=== PATIENT | male | born 1935 | race Caucasian/White ===

== ENCOUNTER 2021-03-02 04:01 | Inpatient (IN) | payer OTHER ==
[~2021-03-02] VITALS: Ht 101.6 cm; Wt 46.6 kg
--- NOTE | ~2021-03-02 | EMS ---
[place] [address] EMS Patient Care Report Name: KATHERINE ZUNIGA Room #: PRE M.R.#: [id number] Admission: Attend Phys: Discharge: Date of : 35 Report #: [id number] THIS REPORT FOR: //name// Report Transmitted: 03/02/2021 03:28 EMS Care Summary [place], [place]/[facility] Incident [id number] @ 03/02/2021 03:34 Incident Location [facility] [address] Patient KATHERINE ZUNIGA Male, 85 Years 1935 Patient Address [address] [place] [address] Patient History Diabetes,Amputee,Back Pain (Chronic), Chief Complaint HYPOGLYCEMIC Disposition Transported No Lights/[place] Dispatch Reason Breathing Problem Transported To [facility] Narrative RESPONDED TO BREATHING PROBLEMS AT SENIOR CARE. UPON ARRIVAL PT FOUND IN BED WITH BREATHING TREATMENT BEING ADMINISTERED BY SENIOR CARE STAFF. [place] STAFF REPORT THEY'VE HAD ISSUES WITH HIS BLOOD SUGAR BEING REUGLATED LATELY ALONG WITH HIM BECOMING MORE ALTERED THROUGHOUT THE NIGHT. PT NORMALLY ON OXYGEN PER [facility] STAFF. PT TEAM LIFTED TO COT AND SEATBELTS APPLIED. PT VITALS AND IV OBTAINED. PT GIVEN 100ML OF D10 AFTER EMS CHECKED HIS GLUCOSE AT 33. PT CONDITION IMPROVED SLIGHTLY UPON ARRIVAL AT HOSPITAL. PT TEAM LIFTED TO BED AND [address] [address] EMS Patient Care Report Name: KATHERINE ZUNIGA Room #: PRE M.R.#: [id number] Admission: Attend Phys: Discharge: Date of : 35 Report #: [id number] HANDRAILS UP. REPORT GIVEN TO NURSE. Initial Vitals @03:45P: 123,R: 14,BP: 101/66,Glucose: 33,SpO2: 93, @03:53P: 142,R: 16,BP: 100/66,Pain: 0/10,GCS: 13,Glucose: 135,CO: 5,SpO2: 93,Revised Trauma: 12, Assessments @03:43MENTAL:Confused,Person Oriented,SKIN:Pale,HEENT:Head/Face: No Abnormalities,LUNG SOUNDS:General: No Abnormalities,ABDOMEN:General: No Abnormalities,PELVIS//GI:Incontinence,EXTREMITIES:Left Arm: Weakness,Right Arm: Weakness,Right Leg: Weakness,Left Leg: Weakness,PULSE:Radial: 2+ Normal,NEURO:Other,@03:55MENTAL:Confused,Person Oriented,Event Oriented,SKIN:Pale,HEENT:LUNG SOUNDS:General: No Abnormalities,ABDOMEN:General: No Abnormalities,PELVIS//GI:Incontinence,EXTREMITIES:Right Arm: Weakness,Right Leg: Weakness,Left Arm: Weakness,Left Leg: Weakness,PULSE:Radial: 2+ Normal,NEURO:Slurred Speech, Impression Diabetic Hypoglycemia Procedures @03:50 IV Therapy - Saline Lock 5cc (20 ga) Site: Antecubital-Right Response: UnchangedSucceeded @03:43 ALS Assessment Response: UnchangedSucceeded @03:52 Dextrose 10% - 100 Milliliters (ml) - Intravenous (IV) Response: Improved @03:45 Oxygen FlowRate: 5 Device: Nasal Cannula (NC) Response: UnchangedSucceeded @PTAAlbuterol - 2.5 Milligrams (mg) - Nebulized Timeline [employer]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,Albuterol - 2.5 Milligrams (mg) - Nebulized, 03:32,Call Received 03:32,Dispatch Notified 03:34,Dispatched 03:36,En Route 03:41,On Scene 03:43,At Patient 03:43,ALS Assessment,Response: UnchangedSucceeded, 03:45,Oxygen FlowRate: 5 Device: Nasal Cannula (NC) Response: UnchangedSucceeded, 03:45,BP: 101/66 M,PULSE: 123,RR: 14 R,SPO2: 93 Ox,ETCO2: ,B,PAIN: ,GCS: , 03:50,IV Therapy - Saline Lock 5cc 20 ga Site: Antecubital-Right,Response: UnchangedSucceeded, 03:52,Dextrose 10% - 100 Milliliters (ml) - Intravenous (IV),Response: Improved [facility] [address] [place] [address] EMS Patient Care Report Name: KATHERINE ZUNIGA Room #: PRE M.R.#: [id number] Admission: Attend Phys: Discharge: Date of : 35 Report #: [id number] 03:53,BP: 100/66 M,PULSE: 142,RR: 16 R,SPO2: 93 Ox,ETCO2: ,B,PAIN: 0,GCS: 13, 03:55,Depart Scene 03:57,At Destination 04:10,Call Closed Disclaimer v1.1 Copyright 2020 [employer] This EMS Care Summary contains data elements from the applicable legal record (which may be displayed differently). It is designed to provide pertinent information for the following purposes: continuity of care, clinical quality, and state data reporting. The complete legal record is available to ED staff and administrators of the receiving hospital in [employer]'s Patient Tracker. All data is provided "as is."
[2021-03-02 04:05] VITALS: BP 80/50
[2021-03-02] MEDS ORDERED: SSD CREAM 1% 5050 GM TOP (04:25)
[2021-03-02] MEDS ORDERED: ASCORBIC ACID500 MG PO (04:26)
[2021-03-02] MEDS ORDERED: ASA81BEC PO (04:26)
[2021-03-02] MEDS ORDERED: FLEXERIL PO (04:27)
[2021-03-02] MEDS ORDERED: LOVENOX30 MG/0.3 SUBQ (04:27)
[2021-03-02] MEDS ORDERED: HEMORRHOIDAL HC25 MG RECTAL (04:29)
[2021-03-02] MEDS ORDERED: GLUCAGON EMERGEN1 MG IM (04:29)
[2021-03-02] MEDS ORDERED: LANTUS100 UNIT/M SUBQ (04:30)
[2021-03-02] MEDS ORDERED: IPRAT-ALBUT 0.5-3 ML INH ×2 (04:30→04:31)
[2021-03-02] MEDS ORDERED: SUPER THERAVIT1 EACH PO (04:32)
[2021-03-02] MEDS ORDERED: MIRTAZAPINE15 M2 PO (04:32)
[2021-03-02] MEDS ORDERED: OXYCODONE HCL20 M1 PO (04:33)
[2021-03-02] MEDS ORDERED: PROTONIX40 M2 PO (04:33)
[2021-03-02] MEDS ORDERED: REGLAN 10 MG TA10 MG PO (04:34)
[2021-03-02] MEDS ORDERED: RENAL-VITE TAB0.8 MG PO (04:34)
[2021-03-02 04:35] LABS: HEMOGLOBIN 11.6 gm/dL (14.0-18.0); MCH 30.6 pg (26.0-34.0); MCHC 32.3 g/dL (28.0-37.0); MCV 94.9 fL (80.0-100.0); PLATELET COUNT 665 thou/uL (150-400); RBC 3.79 mil/uL (4.50-6.00); RDW 14.8 % (10.5-14.5); WBC 20.2 thou/uL (4.0-11.0)
[2021-03-02] MEDS ORDERED: SENNA LAX8.6 MG PO (04:35)
[2021-03-02] MEDS ORDERED: FLOMAX0.4 MG PO (04:35)
[2021-03-02 04:36] LABS: CALCIUM 7.9 mg/dL (8.5-10.1); CREATININE 0.9 mg/dL (0.7-1.3); POTASSIUM 3.3 mmol/L (3.5-5.1)
[2021-03-02 04:52] LABS: ALBUMIN 1.8 g/dL (3.4-5.0); TOTAL BILIRUBIN 0.5 mg/dL (0.2-1.0); TOTAL PROTEIN 5.7 g/dL (6.4-8.2)
[2021-03-02 04:53] LABS: URINE BILIRUBIN NEGATIVE (Negative); URINE BLOOD NEGATIVE (Negative); URINE CLARITY CLEAR; URINE COLOR YELLOW; URINE GLUCOSE-RANDOM* NEGATIVE (Negative); URINE KETONES NEGATIVE (Negative); URINE LEUKOCYTES-REFLEX NEGATIVE (Negative); URINE NITRITE-REFLEX NEGATIVE (Negative); URINE PROTEIN (DIPSTICK) NEGATIVE (Negative); URINE UROBILINOGEN 0.2 E.U./dl (0.2-1.0)
[2021-03-02 05:08] LABS: ABSOLUTE NEUTROPHILS 17.6 thou/uL (1.4-8.2); METAMYELOCYTES 1 %
[2021-03-02 05:40] LABS: HCO3 23.6 mmol/L (22.0-26.0); PCO2 43.7 mmHg (35.0-45.0); PO2 62.9 mmHg (80.0-100.0); pH 7.351 (7.360-7.450)
--- NOTE | 2021-03-02 11:09 | NUR ---
A #5F TRIPLE LUMEN POWER PICC WAS PLACED AFTER A BEDSIDE TIMEOUT WAS COMPLETED. THE LEFT UPPER ARM BRACHIAL VEIN WAS WIDLEY PATENT. THE LINE WAS PLACED PER HOSPITAL POLICY AFTER A BEDSIDE TIMEOUT WAS COMPLETED. THE LINE WAS TRIMMED TO 42CM AND ADVANCED WITHOUT DIFFICULTY. THE LINE WAS SECURED AND RELEASED FOR USE
--- NOTE | 2021-03-02 12:46 | EKG ---
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: : 1935 Requested By: Ela Moscoso Order Number: [id number] MD: Jameson Lyon Measurements Intervals [place] Rate: 106 P: 44 HI: 172 QRS: 57 QRSD: 86 T: 19 QT: 349 QTc: 464 Interpretive Statements Sinus tachycardia Low voltage, extremity and precordial leads Abnormal R-wave progression, early transition No previous ECG available for comparison Electronically Signed On 03-02-2021 12:46:34 ACID POLYMERIZATION OPERATOR by Jameson Lyon [email or web address] <ELECTRONICALLY SIGNED> By: Jameson Lyon MD 03/02/21 1246 0432 1 Jameson Lyon MD /RANDY
--- NOTE | 2021-03-02 14:18 | NUR ---
contacted for requested consult re:sacral ulcer.He deferred consult and requested that we contact instead. Order changed in [facility] & called
[2021-03-02 16:16] LABS: SQUAMOUS 0-3 Few /LPF (0-3)
[2021-03-02 16:17] LABS: BACTERIA-REFLEX 1-9 Few /HPF (None Seen); CASTS None Seen /LPF (None Seen); CRYSTALS None Seen /LPF (None Seen); URINE RBC 1-2 Rare /HPF (NONE SEEN); URINE WBC-REFLEX 0-5 Rare /HPF (0-5)
--- NOTE | 2021-03-02 21:57 | NUR ---
INFORMED HOSPITALIST ABOUT PT BG. HEEL SCORER INSTRUCTED TO DC D5 FLUIDS AND CHECK SUGAR Q6 AND WILL DETERMINE FURTHER STEPS AFTER NEXT BG CHECK.
[2021-03-03] VITALS (15 sets, daily range): BP systolic 85–146; BP diastolic 35–97
--- NOTE | 2021-03-03 04:57 | HC ---
[facility] [address] [place] [address] CONSULTATION Name: KATHERINE ZUNIGA Room #: 170-7 ADM IN M.R.#: [id number] Admission: 03/02/21 Attend Phys: Deanne Rodriguez Discharge: Date of : 35 Report #: [id number] THIS REPORT FOR: cc: Narciso Rosales MD, Christopher B. MD Barry, Joseph W. MD ~ INFECTIOUS DISEASE CONSULTATION ATTENDING PHYSICIAN: Dr. Mitchell. REASON FOR EVALUATION: Suspected aspiration pneumonitis, longstanding sacral decubitus ulcer as well. HISTORY OF PRESENT ILLNESS: Chart reviewed. The patient examined. This is an 85-year-old gentleman with known history of diabetes mellitus and complicated by vasculopathy, has previous bilateral AKAs as well as spinal stenosis with chronic pain, sacral decubitus ulcer, who was noted to have worsening encephalopathy, at this facility was confirmed to have hypoglycemia with a blood sugar in the 50s. He was transferred for further evaluation. He did improve his blood culture, however, had desaturated now, is on 12 liters per nasal cannula. Evaluation noted chest x-ray with multiple left-sided rib fractures, left sided pneumothorax. He has been given some morphine, he is minimally responsive at this point, unable to give any details. He was empirically started on antibiotics with Zosyn, vancomycin. Additional evaluation, lactic acid 1.8. Coronavirus testing was negative. Influenza was negative. Urinalysis was unremarkable. ABG showed a pH of 7.351, pO2 of 62.9 on a 50% Ventimask. ALLERGIES: None known. CURRENT MEDICATIONS: Include enoxaparin, vancomycin, famotidine, Zosyn, ondansetron, morphine as needed, acetaminophen, sliding scale insulin. PAST MEDICAL HISTORY: As described above, diabetes mellitus, vasculopathy, bilateral AKA, spinal stenosis, chronic pain, anxiety, dementia, depression, reflux, gastroparesis, baseline requirement of supplemental oxygen. SOCIAL HISTORY: Nonsmoker, no ethanol, no illicit drug use. FAMILY HISTORY: Noncontributory. REVIEW OF SYSTEMS: Not obtainable. PHYSICAL EXAMINATION: GENERAL: He is chronically ill-appearing, undernourished. He is pale, mild to [facility] [address] [place] [address] CONSULTATION Name: KATHERINE ZUNIGA Room #: 170-7 ADM IN [facility]#: [id number] Admission: 03/02/21 Attend Phys: Deanne Rodriguez Discharge: Date of : 35 Report #: [id number] moderate distress. VITAL SIGNS: Temperature 98.1, pulse 75, respirations 18, blood pressure 112/58. SKIN: Warm, dry, no rashes. HEENT: Normocephalic. NECK: Supple. LUNGS: Diminished breath sounds. ____ discomfort with palpation of the left side of the ribcage. No rubs. HEART: Distant, appears to be regular. I do not appreciate a murmur. ABDOMEN: Scaphoid, somewhat firm, no apparent peritoneal signs. GENITOURINARY AND RECTAL: Deferred. LABORATORY DATA: Procalcitonin 6.48. TSH of 7.145. ABGs on 50% Ventimask, pH 7.351, pCO2 of 43.7, pO2 of 62.9. Chest x-ray as described above, multiple posterolateral left rib fractures, small left apical pneumo, left basilar atelectasis. CBC: White count of 20.2, H and H 11.6 and 36.0, platelets of 665. Urinalysis unremarkable. Electrolytes: Sodium 139, potassium 3.3, chloride of 105, bicarb is 32, anion gap of 2, BUN and creatinine 23 and 0.9, glucose 78. AST of 41, borderline elevated. ALT of 25. Albumin 1.8, total protein 5.7. Estimated GFR of 80. ASSESSMENT: Encephalopathy, likely multifactorial, has some baseline dementia, it has been complicated by respiratory failure, suspect aspiration. We will continue empiric therapy, Zosyn reasonable. We will do additional diagnostic testing. It is uncertain what his baseline is, but he is certainly at high risk for clinical deterioration and additional hospital-acquired complications. <ELECTRONICALLY SIGNED> By: Junior Gonzales MD 03/03/21 0457 [id number] 0842 Junior Gonzales MD /nt
[2021-03-03 05:21] LABS: CALCIUM 7.6 mg/dL (8.5-10.1); CREATININE 0.7 mg/dL (0.7-1.3); POTASSIUM 3.9 mmol/L (3.5-5.1)
[2021-03-03 05:24] LABS: ABSOLUTE NEUTROPHILS 18.7 thou/uL (1.4-8.2); BASOPHILS 0.4 % (0.0-2.0); EOSINOPHILS 0.3 % (0.0-3.0); HEMOGLOBIN 11.6 gm/dL (14.0-18.0); LYMPHOCYTES 6.5 % (24.0-44.0); MCHC 32.1 g/dL (28.0-37.0); MCV 96.6 fL (80.0-100.0); MONOCYTES 4.4 % (1.0-8.0); PLATELET COUNT 676 thou/uL (150-400); POLYS 88.4 % (36.0-66.0); RBC 3.73 mil/uL (4.50-6.00); RDW 15.2 % (10.5-14.5); WBC 21.1 thou/uL (4.0-11.0)
--- NOTE | 2021-03-03 08:19 | NUR ---
PER DR ROJAS TO CAN BE CHANGED TO MED/SURG OF HE CAN COME OFF THE LEVOPHED. HE CAN ALSO BE ON A REGULAR DIET.
--- NOTE | 2021-03-03 18:32 | NUR ---
PT ARRIVED TO UNIT AT 1630. PT WAS TRANSPORTED VIA BED. PT A/OX4. PT COOPERATIVE. PT ANSWERED ADMISSION QUESTIONS. PT WANTED TO KNOW WHERE HIS BELONGINGS WERE. PT ONLY CAME UP WITH A WHITE LONG SLEEVE SHIRT. RN CALLED ED AND THEY SAID THEY WOULD LOOK AND GET BACK TO RN IN ICU
[2021-03-04] VITALS (79 sets, daily range): BP systolic 84–143; BP diastolic 35–62
[2021-03-04] MEDS ORDERED: PERCOCET 5-3251 EACH PO (01:08)
[2021-03-04 04:34] LABS: ALBUMIN 1.3 g/dL (3.4-5.0); CALCIUM 7.3 mg/dL (8.5-10.1); CREATININE 0.7 mg/dL (0.7-1.3); MAGNESIUM 1.2 mg/dL (1.8-2.4); POTASSIUM 3.2 mmol/L (3.5-5.1); TOTAL BILIRUBIN 0.3 mg/dL (0.2-1.0); TOTAL PROTEIN 4.8 g/dL (6.4-8.2)
[2021-03-04 04:45] LABS: ABSOLUTE NEUTROPHILS 10.9 thou/uL (1.4-8.2); BASOPHILS 0.1 % (0.0-2.0); HEMATOCRIT 33.5 % (42.0-52.0); HEMOGLOBIN 10.9 gm/dL (14.0-18.0); LYMPHOCYTES 3.2 % (24.0-44.0); MCH 31.2 pg (26.0-34.0); MCHC 32.4 g/dL (28.0-37.0); MCV 96.2 fL (80.0-100.0); MONOCYTES 1.2 % (1.0-8.0); PLATELET COUNT 658 thou/uL (150-400); POLYS 95.5 % (36.0-66.0); RBC 3.49 mil/uL (4.50-6.00); RDW 15.2 % (10.5-14.5); WBC 11.4 thou/uL (4.0-11.0)
--- NOTE | 2021-03-04 07:37 | NUR ---
pt is a&o x 4. asssements as charted. pt remains on levophed for BP support and high flow NC for oxygen saturation support
[2021-03-04 12:20] LABS: CALCIUM 7.7 mg/dL (8.5-10.1); CREATININE 0.8 mg/dL (0.7-1.3); MAGNESIUM 1.3 mg/dL (1.8-2.4); POTASSIUM 3.2 mmol/L (3.5-5.1)
[2021-03-05] VITALS (30 sets, daily range): BP systolic 92–130; BP diastolic 31–91
--- NOTE | 2021-03-05 05:58 | NUR ---
Pt is slowly progressing towards plan of care as evidenced by continued need to titrate BP and BS medication for optimal level. Pt is a&o x4 but becomes forgetful atimes. pt is still of sepsis protocol with infusion of NS @ 126ml/hr, and titration of levophed and insulin.
--- NOTE | 2021-03-05 08:32 | HC ---
[facility] [place] [address] [place] [address] CONSULTATION Name: KATHERINE ZUNIGA Room #: 243-P [facility] IN M.R.#: [id number] Admission: 03/02/21 Attend Phys: Deanne Rodriguez Discharge: Date of : 35 Report #: [id number] THIS REPORT FOR: cc: Narciso Rosales MD, Christopher B. MD Jetmore, Allen B. MD ~ DATE OF SERVICE: 03/03/2021 WOUND CARE CONSULTATION NOTE REASON FOR CONSULTATION: I am consulted to see the patient in the Emergency Room, an 85-year-old gentleman with altered mental status, diabetes mellitus type 2, sepsis, leukocytosis of 20,000, status post bilateral above-knee amputation and sacral and lumbar pressure sores. He was seen in the emergency room as he has not yet found a bed. The patient is being treated for hypoglycemia, altered mental status and sepsis. I am asked to see him because of sacral and lumbar pressure sores. PAST MEDICAL HISTORY: 1. 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 2. Spinal stenosis with chronic pain. 3. History of sacral and lumbar decubitus ulcers. 4. Altered mental status. 5. Tobaccoism. 6. Severe protein calorie malnutrition, albumin 1.8. 7. History of urinary tract infection. 8. Osteomyelitis of thoracic vertebrae. 9. Peripheral vascular disease. 10. Dependence on supplemental oxygen. MEDICATIONS: Include Lantus insulin 5 units subcutaneously daily. ALLERGIES: None. PHYSICAL EXAMINATION: GENERAL: Shows an alert, pale, elderly gentleman who is pleasant and conversant. HEENT: Mucous membranes are moist. NECK: Supple. ABDOMEN: Soft, with Higgins catheter. EXTREMITIES: The patient has well-healed bilateral above-knee amputations. The patient is placed in the left lateral decubitus position. He is seen to have diffuse sacral stage I pressure sore with redness over the sacral area over a 12 cm diameter area. There are small stage II pressure sores present as well. Barrier cream and sacral Mepilex is ordered. The patient has a 2 x 2.5 cm [facility] [address] [place] [address] CONSULTATION Name: KATHERINE ZUNIGA Room #: 243-P [facility] IN M.R.#: [id number] Admission: 03/02/21 Attend Phys: Deanne Rodriguez Discharge: Date of : 35 Report #: [id number] unstageable pressure sore of the upper midline lumbar spine with whitish romero densely adherent exudate. Mepilex is ordered. IMPRESSION: 1. Chronic immobility with bilateral above-knee amputations. 2. Dementia with altered mental status. 3. Diabetes mellitus type 2 with hypoglycemia. 4. Severe protein calorie malnutrition, albumin 1.8. 5. Leukocytosis with sepsis. 6. Tobaccoism. 7. Peripheral vascular disease with bilateral above-knee amputations. 8. Diffuse sacral stage I pressure sore with small stage II sacral pressure sore. We order barrier cream, Mepilex and offload with low air loss mattress. 9. Unstageable pressure sore of kyphotic upper lumbar spine with a 2 x 2.5 cm wound. Ordered offloading with Mepilex and low air loss mattress. Chart mentioned osteomyelitis of the thoracic and cervical spine. There are no corresponding wounds. Wound Care team will follow. <ELECTRONICALLY SIGNED> By: Jonathan Austin MD 03/05/21 0832 [id number] [id number] Jonathan Austin MD /nt
[2021-03-05 12:35] LABS: MAGNESIUM 1.7 mg/dL (1.8-2.4)
[2021-03-05 12:36] LABS: POTASSIUM 3.8 mmol/L (3.5-5.1)
--- NOTE | 2021-03-05 15:36 | NUR ---
PT ADMITTED RELATED TO SEPSIS, RESP FALIURE, HYPOGLYCEMIA, PNEIMONOTHORAX. CM REVIEWED CHART AND SPOKE WITH CARE TEAM. CM MET WITH PT AT BEDSIDE THIS DAY. PT APPEARED TO BE A&O X2. CM ROLE INTRODUCED. PT INDICATED HE HAD BEEN AT SKILLED AT [facility] DARKLIGHT INSPECTOR. PT INDICATED HE HAD BEEN AT HOME WITH FRIEND CAREGIVER KEITH MCKEE [phone] PRIOR TO SKILLED. CM CALLED AND SPOKE WITH JUNE SHE INDICATED THAT PT HAD BEEN BED BOUND DARKLIGHT INSPECTOR. SHE INDICATED THAT SHE HAD ASSISTED WITH ALL ADLS DARKLIGHT INSPECTOR. THAT PT COULD FEED HIMSELF BUT THAT WAS ABOUT IT. SHE INDICATED THAT SHE HOPES FOR PT TO BE ABLE TO RETURN TO [facility] ONCE MEDICALLY STABLE TO RESUME SKILLED REAHB SERVICES. CM FOLLOWING REGARDING DC PLANNING. CLINICAL SENT TO [facility].
[2021-03-06] VITALS: BP 114/53
[2021-03-06 04:00] VITALS: BP 118/61
[2021-03-06 04:30] LABS: ALBUMIN 1.3 g/dL (3.4-5.0); CALCIUM 7.2 mg/dL (8.5-10.1); CREATININE 0.8 mg/dL (0.7-1.3); MAGNESIUM 1.5 mg/dL (1.8-2.4); POTASSIUM 3.1 mmol/L (3.5-5.1); TOTAL BILIRUBIN 0.2 mg/dL (0.2-1.0); TOTAL PROTEIN 4.3 g/dL (6.4-8.2)
--- NOTE | 2021-03-06 04:45 | NUR ---
Pt a&o X 3 person, time and situation. pt becomes forgetfully ocassionally. pt continue to c/o chronic lower back pain. prn morphine sulfate & oxycodone adm during shift for pain management. pt is on 2 L NC and saturating above 96%. pt is on order for CC TELE transfer.
[2021-03-06 05:06] LABS: HEMATOCRIT 35.2 % (42.0-52.0); HEMOGLOBIN 11.2 gm/dL (14.0-18.0); MCH 30.5 pg (26.0-34.0); MCHC 31.8 g/dL (28.0-37.0); RBC 3.67 mil/uL (4.50-6.00); RDW 14.9 % (10.5-14.5); WBC 13.6 thou/uL (4.0-11.0)
[2021-03-06 08:02] VITALS: BP 150/82
[2021-03-06 16:00] VITALS: BP 137/78
--- NOTE | 2021-03-06 16:57 | NUR ---
PATIENT PROGRESSING TOWARDS THE PLAN OF CARE. MS TELE ORDERS, AWAITING BED.
--- NOTE | 2021-03-06 19:43 | NUR ---
patient transferred to room 454 at 1928. patient's belongings accounted for and taken with the patient. 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
[2021-03-06 20:39] VITALS: BP 147/79
[2021-03-06 23:48] VITALS: BP 171/77
--- NOTE | 2021-03-07 03:24 | NUR ---
PT TRANSFERED FROM ICU AT THE BEGINNING OF THE SHIFT.A/OX4 WITH INTERMITTENT CONFUSION/DISORIENTATION.VSS.C/O BACK PAIN THAT IS CONTROLLED WITH PAIN MEDS.PADMINI LAYTON.DEVIKA MCCLENDON.PT HAS SACRUM AND LOWER BACK WOUND.BARRIER CREAM TO SACRAL AREA.DRESSING TO LOWER LUMBAR CDI.NO CONCERNS VOICED AT THIS TIME.POC IS TO CONT WITH WOUND CARE AND IV ANTIBIOTIC THERAPY.
[2021-03-07 05:05] VITALS: BP 153/85
[2021-03-07 07:33] VITALS: BP 163/64
[2021-03-07 11:40] VITALS: BP 160/75
[2021-03-07 16:40] VITALS: BP 149/70
--- NOTE | 2021-03-07 16:57 | NUR ---
PT WAS SEEN BY ALL THERAPIES THIS DAY. ST TO DO VIDEO SWALLOW TOMRROW. CM SPOKE WITH PT AND HE INDICATED HE WANTS TO SPEAK WITH JUNE ABOUT HOME VS. BACK TO [facility]. PT IS ON IV VANC AND ZOSYN. CM CALLED AND UPDATED JUNE. SHE INDICATED SHE THINKS PT NEEDS TO RETURN TO [facility] SKILLED UPON DC. CM FAXED CLINICAL UPDATE TO [facility]. CM FOLLOWING REGARDING DC PLANNING.
--- NOTE | 2021-03-07 18:28 | NUR ---
Patient care resummed; patient resting comfortably in bed in a semi-fowlers position. VSS; sinus rhythm throughout day; on 2L.NC; BP has been stable throughout the day. C/O of back pain which was controlled with PRN medications, PADMINI KINJAL, Gisela DD, Sacrum wound with PRN barrier cream and a lower lumbar wound with dressing D/C/I. A&O*3 with intermittent confusion/disorientation. Speech therapy consulted to today; diet has been changed to a mechanical-altered chop with neckered think liquids. Medications should been given 1 at a time with pure meals. Swallow study to be done 03/08/21 in the health unit clerk per [facility] PICC dressing D/C/I.
[2021-03-07 20:37] VITALS: BP 176/75
[2021-03-07 20:59] VITALS: BP 158/63
[2021-03-08 05:05] VITALS: BP 162/78
--- NOTE | 2021-03-08 05:23 | NUR ---
ASSUMED PT CARE THIS PM. PT IS ALERT AND ORIENTED X2. PT HAS EDEMA TO BUE AMD SWOLLEN SCROTUM. PT HAS FORTUNE IN PLACE WHICH IS PATENT. PT IS ON 2L OF O2 VIA NC. PT HAS OPEN SORE TO THE BUTT AND BACK. PT C/O PAIN WHICH WAS MANHED BY PRN PAIN MEDS. PT HAS 3LUMEN TO THE BREANA. NO OTHER CONCCERNS WERE VERBALIZED BY PT. FALL PRECAUTIONS IN PLACE.WILL CONTINUE TO MONITOR.
[2021-03-08 07:57] VITALS: BP 147/63
[2021-03-08] MEDS ORDERED: PERCOCET PO (10:51)
[2021-03-08] MEDS ORDERED: VAN500AD IV (10:53)
[2021-03-08 12:16] VITALS: BP 129/59
--- NOTE | 2021-03-08 15:41 | NUR ---
CARE TEAM INDICATED THAT PT IS MEDICALLY STABLE TO DC TO [facility] THIS AFTERNOON. CM FAXED ORDERS TO FACILITY. CHART COPY MADE. FACILITY ARRANGED STRETCHER TRANSPORT FOR 1700. CM NOTIFIED PT AND DPOA JUNE. DPOA IS AWARE AND AGREEABLE. NURSE GIVEN NUMBER FOR REPORT.
== END 2021-03-08 17:07 | DRG 871 ==
LOC: ER 04:01 → EROBS 05:59 → ICU 05:59 → 4W 03-06 19:58
PROVIDERS: Emergency Medicine; Psychiatry & Neurology Neuromuscular Medicine; ADMIT Hospitalist; ATTEND Hospitalist
PROC: 02HV33Z Insertion of Infusion Device into Superior Vena Cava, Percutaneous Approach (ICD-10-PCS; principal; 2021-03-02)
PROC: 5A0945A Assistance with Respiratory Ventilation, 24-96 Consecutive Hours, High Flow/Velocity Cannula (ICD-10-PCS; 2021-03-03)
DX: A41.9 Sepsis, unspecified organism (principal); L89.153 Pressure ulcer of sacral region, stage 3; J69.0 Pneumonitis due to inhalation of food and vomit; E43 Unspecified severe protein-calorie malnutrition; R65.21 Severe sepsis with septic shock; J96.21 Acute and chronic respiratory failure with hypoxia; S22.42XA Multiple fractures of ribs, left side, initial encounter for closed fracture; G93.40 Encephalopathy, unspecified; J93.83 Other pneumothorax; M46.23 Osteomyelitis of vertebra, cervicothoracic region; L89.100 Pressure ulcer of unspecified part of back, unstageable; M46.42 Discitis, unspecified, cervical region; M46.44 Discitis, unspecified, thoracic region; M48.061 Spinal stenosis, lumbar region without neurogenic claudication; F03.90 Unspecified dementia, unspecified severity, without behavioral disturbance, psychotic disturbance, mood disturbance, and anxiety; F41.9 Anxiety disorder, unspecified; G89.4 Chronic pain syndrome; E11.51 Type 2 diabetes mellitus with diabetic peripheral angiopathy without gangrene; F32.9 Major depressive disorder, single episode, unspecified; G47.00 Insomnia, unspecified; N40.0 Benign prostatic hyperplasia without lower urinary tract symptoms; K21.9 Gastro-esophageal reflux disease without esophagitis; I10 Essential (primary) hypertension; E11.649 Type 2 diabetes mellitus with hypoglycemia without coma; E11.69 Type 2 diabetes mellitus with other specified complication; R53.81 Other malaise; Z20.822 Contact with and (suspected) exposure to COVID-19; Z23 Encounter for immunization; Z89.612 Acquired absence of left leg above knee; Z89.611 Acquired absence of right leg above knee; Z79.82 Long term (current) use of aspirin; Z79.899 Other long term (current) drug therapy; X58.XXXA Exposure to other specified factors, initial encounter; Y93.89 Activity, other specified; Y92.89 Other specified places as the place of occurrence of the external cause; Y99.8 Other external cause status
CPT/HCPCS: 10045; 10078; 10203; 27000

== ENCOUNTER 2021-03-12 13:02 | Inpatient (IN) | payer OTHER ==
[~2021-03-12] VITALS: Ht 101.6 cm; Wt 61.7 kg
--- NOTE | ~2021-03-12 | EMS ---
[facility] [address] [place] [address] EMS Patient Care Report Name: KATHERINE ZUNIGA Room #: PRE M.Ynes#: [id number] Admission: Attend Phys: Discharge: Date of : 35 Report #: [id number] THIS REPORT FOR: //name// Report Transmitted: 03/12/2021 12:52 EMS Care Summary [place], [place]/[facility] Incident [id number] @ 03/12/2021 12:38 Incident Location [address] Patient KATHERINE ZUNIGA Male, 85 Years 1935 Patient Address [address] [place] [address] Patient History Diabetes,Hypertension (HTN),Gastro-Esophageal Reflux Disease (GERD), Patient Allergies No known allergies, Patient Medications Mirtazapine, Albuterol, Lovenox, Cyclobenzaprine, Humalog, Insulin, Oxycodone, Glucagon, Chief Complaint AMS Disposition Transported No Lights/[place] Dispatch Reason Diabetic Problem Transported To [facility] Narrative M528 dispatched for a 85 year old male conscious and breathing with a diabetic emergency. M528 responds to the scene 68mg/dl.and finds the patient in the [facility] [address] [place] [address] EMS Patient Care Report Name: KATHERINE ZUNIGA Room #: PRE Jaden#: [id number] Admission: Attend Phys: Discharge: Date of : 35 Report #: [id number] group home bed in the fowlers position. Patient does not acknowledge EMS presence. Patient has a patent airway is breathing adequately with weak irregular radial pulses. Skin is pale cool and clammy. Patient is responsive to verbal stimulation. VS and glucose check is conducted. Patient is hypotensive and glucose reads 68mg/dL. Staff advises to EMS that they have not been able to maintain the patient's glucose levels and that it keeps "tanking". Staff advises that the patient glucose level was 59 and that they have administered 1 of glucagon two times and that the glucose levels continue to drop. Staff advises that the glucagon was administered one hour ago. Patient is quickly moved to the stretcher with assistance from P36 personnel. Patient is placed in the fowlers position and secured using seatbelts and rails. Patient is wheeled to the ambulance and VS are obtained again with ECG. ECG shows irregular rhythm. After a few minutes patient becomes lucid and responsive. Patient is GCS 15 and AAOx4. Patient has a patent airway is breathing adequately with strong regular radial pulses. Skin is pale cool and clammy. HEENT are WNL. Pupils are PERRL. Trachea is midline with no JVD noted. Chest wall is stable and intact. Upper extremities are noted to have Edema and CMS present. Patient is amputee of both lower extremities. Patient condition is stable and improved. Transport is initiated across the street to [facility]. Arrival at the receiving facility patient is offloaded and taken to ED room 7. RN is given report and signatures are obtained. Transfer of care is completed and M582 returns to service. Initial Vitals @12:56P: 94,R: 20,BP: 141/84,Pain: 0/10,GCS: 15,SpO2: 96,Revised Trauma: 12,DC Suspected: false @12:47P: 92,R: 22,BP: 71/44,Pain: 0/10,GCS: 3,Glucose: 68,Revised Trauma: 6,DC Suspected: false Assessments @12:46MENTAL:Confused,Person Oriented,SKIN:Pale,Cold,HEENT:Head/Face: No Abnormalities,Eyes: No Abnormalities,LUNG SOUNDS:General: No Abnormalities,Left Upper: No Abnormalities,Right Upper: No Abnormalities,Left Lower: No Abnormalities,Right Lower: No Abnormalities,ABDOMEN:General: No Abnormalities,Left Upper: No Abnormalities,Right Upper: No Abnormalities,Left Lower: No Abnormalities,Right Lower: No Abnormalities,PELVIS//GI:No Abnormalities,EXTREMITIES:Right Arm: Weakness,Left Arm: Edema,Right Arm: Edema,Left Arm: Weakness,Left Leg: No Abnormalities,Right Leg: No Abnormalities,PULSE:Radial: 1+ Thready,NEURO:Other, Impression Diabetic Hypoglycemia Procedures @12:45 ALS Assessment Response: UnchangedSucceeded [facility] [address] [place] [address] EMS Patient Care Report Name: NADIAKATHERINE Room #: PRE [facility].R.#: [id number] Admission: Attend Phys: Discharge: Date of : 35 Report #: [id number] @12:47 3-Lead ECG Response: UnchangedSucceeded Timeline 12:35,Call Received 12:35,Dispatch Notified 12:38,Dispatched 12:39,En Route 12:43,On Scene 12:45,At Patient 12:45,ALS Assessment,Response: UnchangedSucceeded, 12:47,3-Lead ECG,Response: UnchangedSucceeded, 12:47,BP: 71/44 M,PULSE: 92,RR: 22 R,SPO2: Ox,ETCO2: ,B,PAIN: 0,GCS: 3, 12:55,Depart Scene 12:56,BP: 141/84 M,PULSE: 94,RR: 20 R,SPO2: 96 Ox,ETCO2: ,BG: ,PAIN: 0,GCS: 15, 12:58,At Destination 13:10,Call Closed Disclaimer v1.1 Copyright 2020 [employer] This EMS Care Summary contains data elements from the applicable legal record (which may be displayed differently). It is designed to provide pertinent information for the following purposes: continuity of care, clinical quality, and state data reporting. The complete legal record is available to ED staff and administrators of the receiving hospital in [employer]'s Patient Tracker. All data is provided "as is."
[~2021-03-12 13:02] MED LIST: ASA81BEC PO; ASCORBIC ACID500 MG PO; FLEXERIL PO; FLOMAX0.4 MG PO; GLUCAGON EMERGEN1 MG IM; HEMORRHOIDAL HC25 MG RECTAL; IPRAT-ALBUT 0.5-3 ML INH; LANTUS100 UNIT/M SUBQ; LOVENOX30 MG/0.3 SUBQ; MIRTAZAPINE15 M2 PO; OXYCODONE HCL20 M1 PO; PERCOCET 5-3251 EACH PO; PERCOCET PO; PROTONIX40 M2 PO; REGLAN 10 MG TA10 MG PO; RENAL-VITE TAB0.8 MG PO; SENNA LAX8.6 MG PO; SSD CREAM 1% 5050 GM TOP; SUPER THERAVIT1 EACH PO; VAN500AD IV
[2021-03-12 13:03] VITALS: BP 161/81
--- NOTE | 2021-03-12 13:07 | NUR ---
PT ARRIVES WITH HEALING BED SORE TO COCCYX.
[2021-03-12] MEDS ORDERED: HUMALOG100 UNIT/1 SUBQ (13:13)
[2021-03-12 15:37] LABS: HEMATOCRIT 37.3 % (42.0-52.0); MCH 30.2 pg (26.0-34.0); MCHC 32.1 g/dL (28.0-37.0); MCV 94.2 fL (80.0-100.0); PLATELET COUNT 582 thou/uL (150-400); RBC 3.96 mil/uL (4.50-6.00); RDW 16.5 % (10.5-14.5)
--- NOTE | 2021-03-12 15:41 | NUR ---
VASCULAR ACCESS NURSE- XRAY NOTED, A SLIGHT KINK IS VISABLE IN THE SHOULDER AREA. THE DRESSING WAS CHANGED AND LINE WITHDREW 2CM TO RELEASE KINK. CATHFLOX1 TO RED PORT WITH NO SUCCESSFUL BLOOD RETURN. A 2ND DOSE PLACED TO DWELL IN RED PORT AND PIPER PORT. THE DRESSING WAS NOTED TO BE DIRTY AND NONOCCLUSIVE. LAST DATE OF DRESSING CHANGE WAS 03/02- 10 DAYS. THE PATIENT REPORTS NO BLOOD RETURN FROM LINE FOR SEVERAL DAYS. SPOKE TO THE CATCH BASIN CLEANER AND CATHFLO WILL DWELL OVERNIGHT IF PATIENT STAYS A INPATIENT.
[2021-03-12 15:56] LABS: CALCIUM 7.8 mg/dL (8.5-10.1); CREATININE 0.6 mg/dL (0.7-1.3); POTASSIUM 3.4 mmol/L (3.5-5.1)
[2021-03-12 16:01] LABS: ALBUMIN 1.6 g/dL (3.4-5.0); TOTAL BILIRUBIN 0.4 mg/dL (0.2-1.0); TOTAL PROTEIN 5.2 g/dL (6.4-8.2)
[2021-03-12 16:18] LABS: ABSOLUTE NEUTROPHILS 22.3 thou/uL (1.4-8.2)
[2021-03-12 16:19] LABS: PLATELET ESTIMATE NORMAL
[2021-03-12 17:29] LABS: URINE BILIRUBIN NEGATIVE (Negative); URINE BLOOD 2+ (Negative); URINE CLARITY SL CLOUDY; URINE COLOR YELLOW; URINE GLUCOSE-RANDOM* NEGATIVE (Negative); URINE KETONES NEGATIVE (Negative); URINE LEUKOCYTES-REFLEX 1+ (Negative); URINE NITRITE-REFLEX NEGATIVE (Negative); URINE PROTEIN (DIPSTICK) NEGATIVE (Negative); URINE SPECIFIC GRAVITY 1.025 (1.005-1.035); URINE UROBILINOGEN 0.2 E.U./dl (0.2-1.0)
[2021-03-12 17:39] LABS: CASTS None Seen /LPF (None Seen); SQUAMOUS 0-3 Few /LPF (0-3)
[2021-03-12 17:43] LABS: CALCIUM OXALATE 0-3 Few /LPF (None Seen)
[2021-03-12 17:45] LABS: YEAST-REFLEX Present (None Seen)
[2021-03-12 17:46] LABS: BACTERIA-REFLEX >30 Many /HPF (None Seen); URINE WBC-REFLEX 6-15 Few /HPF (0-5)
[2021-03-12] MEDS ORDERED: NORMAL SALINE FL5 ML IV (18:49)
[2021-03-12] MEDS ORDERED: [UNRECOGNIZED DRUG - OTHER] IRRIG (18:50)
[2021-03-12] MEDS ORDERED: REGLAN10 MG PO (18:51)
[2021-03-12] MEDS ORDERED: RENAL-VITE TAB0.8 MG PO (18:52)
[2021-03-12] MEDS ORDERED: FLOMAX0.4 MG PO (18:53)
[2021-03-12] MEDS ORDERED: SENNA LAX8.6 MG PO (18:53)
[2021-03-12] MEDS ORDERED: VANCO 500500 MG/100 IV (18:54)
--- NOTE | 2021-03-13 07:44 | EKG ---
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 : 1935 Requested By: Chyna Mcdonald Order Number: [id number] MD: Sarabjit Reis Measurements Intervals [place] Rate: 90 P: 59 CO: 158 QRS: 53 QRSD: 70 T: 45 QT: 459 QTc: 562 Interpretive Statements Sinus rhythm Low voltage, extremity and precordial leads Prolonged QT interval Compared to ECG 03/02/2021 04:32:27 Sinus tachycardia no longer present Electronically Signed On 03-13-2021 7:44:18 HYPO DIPPER by Sarabjit Reis [email or web address] <ELECTRONICALLY SIGNED> By: Sarabjit Reis MD, [facility] 03/13/21 0744 1312 11 Sarabjit Reis MD, [facility] /EPI
--- NOTE | 2021-03-13 14:03 | NUR ---
Case opened to follow for dc planning. Pt is known to cm from recent dc [facility]. He was sent to SNF for iv vanco and some therapy with the plan to return home with his caregiver/friend/dpoa Bonnie Raman. He readmitted with AMS/UTI from the SNF and has been started on iv rocephin as well. The attending has spoken with the pt/Bonnie. Pt is now a DNR and both would like the pt to go home with HH. CM attempted to reach Bonnie to discuss hh options and see if they have used a provider in the recent past. Message left for her to call cm regarding dc planning efforts. Dc timeframe is uncertain. will need to clarify iv atb needs for dc and confirm Bonnie is able to provide 24hr care and manage his iv atb at home. Home infusion referral faxed to [facility] as they are in network with [facility]. Home address also needs clarification as [facility] and [facility] for June.
[2021-03-13 15:44] LABS: HEMATOCRIT 34.5 % (42.0-52.0); HEMOGLOBIN 10.8 gm/dL (14.0-18.0); MCH 29.6 pg (26.0-34.0); MCHC 31.3 g/dL (28.0-37.0); MCV 94.7 fL (80.0-100.0); RBC 3.65 mil/uL (4.50-6.00); RDW 16.9 % (10.5-14.5); WBC 17.6 thou/uL (4.0-11.0)
[2021-03-13 15:52] LABS: CALCIUM 7.7 mg/dL (8.5-10.1); CREATININE 0.8 mg/dL (0.7-1.3); POTASSIUM 3.9 mmol/L (3.5-5.1)
[2021-03-13 22:14] VITALS: BP 125/69
[2021-03-14 07:46] VITALS: BP 125/69
[2021-03-14 07:58] VITALS: BP 137/71
[2021-03-14 07:59] VITALS: BP 137/71
[2021-03-14 10:02] LABS: HEMATOCRIT 36.8 % (42.0-52.0); HEMOGLOBIN 11.8 gm/dL (14.0-18.0); MCH 30.3 pg (26.0-34.0); MCHC 32.1 g/dL (28.0-37.0); MCV 94.4 fL (80.0-100.0); RBC 3.9 mil/uL (4.50-6.00); RDW 16.5 % (10.5-14.5); WBC 19.4 thou/uL (4.0-11.0)
[2021-03-14 10:11] LABS: CALCIUM 8.2 mg/dL (8.5-10.1); CREATININE 0.7 mg/dL (0.7-1.3)
--- NOTE | 2021-03-14 13:50 | NUR ---
Spoke with cg/dpoa June this am. She has talked with "Jacques" and they want the pt to [facility]. Abby in admissions at [facility] BS updated and clinical referral faxed. Abby is checking his medicare/ days but does anticipate being able to accept the pt for another snf stay there. She does not have a bed today but will likely have on tomorrow. BPCI status and Abby is aware. [facility] Saima liason updated as well. June also notes plan to take the pt home in the future with hospice care once he has finished his iv atb (total of 2months). She reports they may be moving to a different rental property in the next two weeks as their landlord ([employer]) is selling their current rental home. Support provided. Awaiting therapy evals. Pt will need snf for iv atb and therapy. Possible dc ready tomorrow.
--- NOTE | 2021-03-14 15:50 | NUR ---
ORDERS RECEIVED FOR EVAL AND TREAT. LONG DISCUSSION WITH Pt. HIS GOAL IS TO GET HIS ARMS STRONGER. WILL DEFER UPPER EXTREMITY STRENGTHENING TO O.T. Pt CURRENTLY DEPENDENT WITH TRANSFERS. HAS 2 PEOPLE SIT HIM EDGE OF BED THEN THEY EACH GET HOLD UNDER EACH ARM AND LIFT HIM AND PLACE HIM IN HIS WHEELCHAIR AT HOME. STATES ORIGINALLY THEY WERE WORKING ON GETTING HIM READY FOR EVENTUAL PROSTHESES BUT HE WAS UNABLE TO TOLERATE DUE TO PAIN IN BACK AND COCCYX AND THEY EVENTUALLY SIGNED OFF. Pt HAS NO FUNCTIONAL GOALS FOR P.T. AND IS DEPENDENT WITH MOBILITY AND NOT APPROPRIATE FOR THERAPY IN THE ACUTE SETTING. THIS THERAPIST DID INTRODUCE THE Pt TO [email or web address] TO PROVIDE THERAPEUTIC STIMULATION FOR HIS MIND.
[2021-03-14 16:01] VITALS: BP 116/74
--- NOTE | 2021-03-14 16:23 | NUR ---
ADMITTED TO 4S FOR HYPOGLYCEMIA AND UTI. A/O X3 FORGETFUL. 2 L O2 VIA NASAL CANNULA. BILATERAL AKA. USES URINAL IN BED. COCCYX WOUND. CHRONIC BACK PAIN 10/06. BS 117 @ LUNCH. LEFT UPPER ARM TRIPLE LUMEN PICC AND LEFT AV IV. TOLERATING VANCO WELL. SR ON TELE. FROM [facility]. HAS A CAREGIVER NAMED JUNE. WANTS TO D/C TO A DIFFERENT SNF. CM CAN TO SPEAK WITH HIM.
[2021-03-14 20:49] VITALS: BP 122/74
[2021-03-15 06:19] LABS: HEMATOCRIT 33.4 % (42.0-52.0); HEMOGLOBIN 10.9 gm/dL (14.0-18.0); MCH 30.7 pg (26.0-34.0); MCHC 32.6 g/dL (28.0-37.0); MCV 94.2 fL (80.0-100.0); RBC 3.54 mil/uL (4.50-6.00); RDW 16.6 % (10.5-14.5); WBC 14.5 thou/uL (4.0-11.0)
[2021-03-15 06:25] LABS: CALCIUM 7.7 mg/dL (8.5-10.1); CREATININE 0.6 mg/dL (0.7-1.3); POTASSIUM 3.6 mmol/L (3.5-5.1)
[2021-03-15 07:37] VITALS: BP 132/60
--- NOTE | 2021-03-15 09:55 | NUR ---
Chart copy requested, anticipate dc to [facility].
--- NOTE | 2021-03-15 11:10 | NUR ---
[facility] call, they set up transportation for wheelchair van for 1530, bedside nurse to call report.
[2021-03-15] MEDS ORDERED: CEFDINIR300 MG PO (15:13)
--- NOTE | 2021-03-16 05:09 | HC ---
[facility] [place] [address] CONSULTATION Name: KATHERINE ZUNIGA Room #: 445-P [facility] IN M.R.#: [id number] Admission: 03/12/21 Attend Phys: Cata Bates MD Discharge: 03/15/21 Date of : 35 Report #: [id number] THIS REPORT FOR: cc: Narciso Rosales MD, Christopher B. MD Barry, Joseph W. MD ~ DATE OF SERVICE: 03/14/2021 INFECTIOUS DISEASE CONSULTATION ATTENDING PHYSICIAN: Dr. Bates. REASON FOR EVALUATION: Cervical discitis. HISTORY OF PRESENT ILLNESS: Chart reviewed. The patient examined. This is an 85-year-old gentleman well known to myself, who was just discharged within the last week from this facility. He was actually admitted due to hypoglycemia, determined to have a possible pneumonitis at that point. He had been diagnosed with cervical diskitis, osteomyelitis. He was undergoing treatment for that. Again, he got readmitted through the Emergency Room due to hypoglycemic episode with blood sugars in the 40s. This has been corrected. He is generally responsive at this point. He does have a longstanding, appears to be, fairly superficial ulcer involving the sacral site, perhaps involving the lumbar as well. He describes as being quite painful, less so the neck. Addition to the vancomycin, he was started on ceftriaxone. Urinalysis did show moderate pyuria with bacteriuria, did have a yeast evident as well. So, at this point, he denies sense of fevers, chills. Appetite has been satisfactory. He has had poor p.o. intake, which he attributed to food, which he does not like. He denies significant pulmonary-related complaints at this point. ALLERGIES: None known. CURRENT MEDICATIONS: Include pantoprazole, ceftriaxone, cyclobenzaprine, aspirin, vancomycin, insulin sliding scale, mirtazapine, ascorbic acid, ipratropium, albuterol inhaler, OxyContin, alteplase. PAST MEDICAL HISTORY: Diabetes mellitus type 2, complicated by vasculopathy; bilateral below-knee amputations; has some chronic decubitus ulcer; recurrent urinary tract infections; cervical, thoracic, vertebral osteo with diskitis; dementia, anxiety, chronic pain syndrome, reflux, lumbar spinal stenosis. SOCIAL HISTORY: Available in chart. FAMILY HISTORY: Available in chart. [address] [address] CONSULTATION Name: KATHERINE ZUNIGA Room #: 445-P [facility] IN M.R.#: [id number] Admission: 03/12/21 Attend Phys: Cata Bates MD Discharge: 03/15/21 Date of : 35 Report #: [id number] REVIEW OF SYSTEMS: Otherwise, unremarkable. PHYSICAL EXAMINATION: GENERAL: He is actually more responsive than last hospitalization, engaged, is in tyrs-mg-ywhskqth distress, appears chronically ill and undernourished. VITAL SIGNS: Temperature 97.3, pulse 88, respirations 18, blood pressure 116/74. SKIN: Warm, dry, no rashes. HEENT: Normocephalic. Extraocular muscles intact. NECK: Supple. LUNGS: Diminished breath sounds. Few scattered crackles at the bases. HEART: Regular, soft systolic murmur. ABDOMEN: Soft, nontender. Lumbar sacral site has a superficial ulcer with ____ appearance, some mild inflammatory signs noted at the margins. GENITOURINARY AND RECTAL: Deferred. LABORATORY DATA: Urine culture with growth of Mariella tropicalis. Electrolytes: Sodium 142, potassium 4.0, chloride 104, bicarbonate is 37, anion gap of 1, BUN and creatinine 7 and 0.7, estimated GFR of 107. CBC: White count of 19.4, H and H is 10.8 and 36.8, platelets of 584. ASSESSMENT AND PLAN: Cervical, thoracic diskitis, osteomyelitis. Continue empiric therapy with vancomycin. We do not have any culture results and he had been on oral doxycycline. Discharged from previous hospitalization. Secondly, appears to have a complicated urinary tract infection. We will add micafungin in addition to empiric therapy with ceftriaxone. Seemingly, this may be a medication issue, second admission with hypoglycemia. He does have a persistent leukocytosis, not apparently evident as a focal area of pyogenic infection, has otherwise been not defined thus far. May need to do additional imaging studies abdomen and pelvis to exclude occult process. At this point, he is not overtly toxic. Continue to monitor expectantly. <ELECTRONICALLY SIGNED> By: Junior Gonzales MD 03/16/21 0509 [id number] 0130 Junior Gonzales MD /nt
== END 2021-03-15 16:38 | DRG 871 ==
LOC: ER 13:02 → 4S 18:16 → EROBS 18:16 → 4S 03-14 08:12
PROVIDERS: Emergency Medicine; Student in an Organized Health Care Education/Training Program; ADMIT Internal Medicine; ATTEND Internal Medicine
PROC: 02HV33Z Insertion of Infusion Device into Superior Vena Cava, Percutaneous Approach (ICD-10-PCS; principal; 2021-03-12)
DX: A41.9 Sepsis, unspecified organism (principal); J18.9 Pneumonia, unspecified organism; E43 Unspecified severe protein-calorie malnutrition; N39.0 Urinary tract infection, site not specified; S22.42XA Multiple fractures of ribs, left side, initial encounter for closed fracture; M46.23 Osteomyelitis of vertebra, cervicothoracic region; G93.40 Encephalopathy, unspecified; G72.81 Critical illness myopathy; K31.84 Gastroparesis; L89.159 Pressure ulcer of sacral region, unspecified stage; Z20.822 Contact with and (suspected) exposure to COVID-19; F03.90 Unspecified dementia, unspecified severity, without behavioral disturbance, psychotic disturbance, mood disturbance, and anxiety; F41.9 Anxiety disorder, unspecified; G89.4 Chronic pain syndrome; N40.0 Benign prostatic hyperplasia without lower urinary tract symptoms; K21.9 Gastro-esophageal reflux disease without esophagitis; I10 Essential (primary) hypertension; F32.9 Major depressive disorder, single episode, unspecified; G47.00 Insomnia, unspecified; E11.649 Type 2 diabetes mellitus with hypoglycemia without coma; R65.20 Severe sepsis without septic shock; Z66 Do not resuscitate; E11.51 Type 2 diabetes mellitus with diabetic peripheral angiopathy without gangrene; M54.50 Low back pain, unspecified; M48.061 Spinal stenosis, lumbar region without neurogenic claudication; B96.89 Other specified bacterial agents as the cause of diseases classified elsewhere; R53.81 Other malaise; E11.43 Type 2 diabetes mellitus with diabetic autonomic (poly)neuropathy; Z89.512 Acquired absence of left leg below knee; Z89.511 Acquired absence of right leg below knee; Z79.82 Long term (current) use of aspirin; Z79.899 Other long term (current) drug therapy; X58.XXXA Exposure to other specified factors, initial encounter; Y93.89 Activity, other specified; Y92.89 Other specified places as the place of occurrence of the external cause; Y99.8 Other external cause status
CPT/HCPCS: 10100

== ENCOUNTER 2021-03-25 20:41 | Emergency (ER) | payer OTHER ==
[~2021-03-25] VITALS: Ht 121.9 cm; Wt 36.3 kg
--- NOTE | ~2021-03-25 | EMS ---
[address] [address] EMS Patient Care Report Name: KATHERINE ZUNIGA Room #: DEP TENA Stanley#: [id number] Admission: 03/25/21 Attend Phys: Discharge: 03/25/21 Date of : 35 Report #: [id number] THIS REPORT FOR: //name// Report Transmitted: 03/26/2021 07:32 EMS Care Summary [facility] MED-ACT Incident [id number] @ 03/25/2021 19:41 Incident Location [address] [address] Patient KATHERINE ZUNIGA Male, 85 Years 1935 Patient Address [address] [place] [address] Patient History Other,Dementia,Hypertension (HTN),Gastro-Esophageal Reflux Disease (GERD),Amputee,Urinary Tract Infection (UTI),Depression,Anxiety,Sepsis,Pressure Ulcer,Malnutrition,Anorexia Nervosa,Type 2 Diabetes,Enlarged prostate,Insomnia, Patient Allergies No known allergies, Patient Medications Atrovent, Tamsulosin, Oxycodone, Insulin, Lovenox, Albuterol, Pantoprazole, ASA, Reglan, Vancomycin, Cyclobenzaprine, Chief Complaint cardiac arrest Disposition Transported Lights/Mccrory Dispatch Reason Cardiac Arrest/ Transported To [facility] Narrative [address] [address] EMS Patient Care Report Name: KATHERINE ZUNIGA Room #: DEP ER Jaden#: [id number] Admission: 03/25/21 Attend Phys: Discharge: 03/25/21 Date of : 35 Report #: [id number] Dispatched to a rehab facility for an 85 year old male reported to be in cardiac arrest. EMS arrives to [facility] the pt supine on the floor, with an iGel in place and CPR being performed by [facility] FD crew. FD crew reports that the pt was unresponsive, pulseless, and apneic upon their arrival, and that their initial rhythm check showed asystole. Facility staff reports that they last checked on the pt about 90 minutes prior and say that he has been declining recently. They report that he is there to receive IV vancomycin for osteomyelitis. Staff reports that they found the pt in cardiac arrest just prior to calling 911. Pt is noted to have a DNR plastic bracelet on his right arm, however staff insist that he he came to them wearing that but has no out of hospital DNR/is a full code. Pt reportedly has no family to contact for clarification so responders continued with resuscitation efforts. Pt remains in asystole and PEA for approximately 25 minutes. Procedures and Vs as noted. Pt initially noted to have a waveform and numeric reading etCO2 with iGel ventilation however it was unable to be maintained despite numerous etCO2 filter line sets being utilized and two different iGels placed. Pt maintain a visible waveform and numeric reading when BVM and mask ventilations are done instead. EMS contacts medical control for orders to DC resuscitation after 25 minutes due to the lack of a secured airway. Dr. Calderón requests that an ET tube be placed and 5-10 more minutes of effort be attempted. Shortly thereafter, prior to intubation, pt is noted to have carotid and femoral pulses (ROSC). Pt did not regain spontaneous respiratory effort. ET tube placed and secured, and Vs obtained prior to lifting the pt to the cot and being secured for emergent transport to the nearest ER. Pt remained unresponsive with non-reactive pupils. 12 lead shows an inferior STEMI while en route. Norepinephrine drip initiated for profound hypotension until pts BP increased to above 100 systolic. [facility] given notification of impending arrival of a post cardiac arrest pt. Upon arrival at the ER, pt is lifted from the cot to the ER bed #1. Care transferred to waiting RN and MD. Initial Vitals @20:33P: 88,BP: 49/28,EtCO2: 57, @20:33P: 99,EtCO2: 56,AR Suspected: true @19:08BeTY9: 18, @20:16P: 73,EtCO2: 26, @20:12P: 116,EtCO2: 14, @20:27P: 73,EtCO2: 65, @19:54 @19:25UxFY1: 4, @19:55 @20:97GwCR0: 65,SpO2: 66, @19:58P: 0,EtCO2: 23, @20:12P: 116,R: 10,EtCO2: 28, @20:45P: 29,R: 12,EtCO2: 32,SpO2: 68, @20:05R: 10,EtCO2: 30, [facility] [address] [place] [address] EMS Patient Care Report Name: KATHERINE ZUNIGA Room #: DEP Jaden#: [id number] Admission: 03/25/21 Attend Phys: Discharge: 03/25/21 Date of : 35 Report #: [id number] @20:44P: 116,R: 10,EtCO2: 32,SpO2: 61, @20:11R: 13,EtCO2: 29, @20:38R: 9,BP: 109/90,EtCO2: 59,SpO2: 63, @20:35P: 98,R: 10,EtCO2: 63,SpO2: 72, @20:01R: 10,EtCO2: 14, @20:48P: 37,R: 10,EtCO2: 44,SpO2: 75, @20:36P: 96,R: 10,EtCO2: 56,SpO2: 66, @20:15P: 120,R: 10,EtCO2: 44, @20:24P: 106,R: 10,BP: 67/40,EtCO2: 62, @20:03R: 10,EtCO2: 0, @20:36BP: 135/100,GCS: 3,SpO2: 68, @19:52P: 0,R: 0,GCS: 3,Glucose: 130,AR Suspected: false @PTAP: 0,R: 0,GCS: 3,AR Suspected: false @20:20P: 100,R: 10,BP: 96/53,GCS: 3,EtCO2: 84,Revised Trauma: 8, Impression Cardiac arrest Procedures @PERFORMANCE IMPROVEMENT COORDINATOR Response: UnchangedSucceeded @20:33 12-Lead ECG Response: UnchangedSucceeded @20:18 Orotracheal Intubation Complications: None, Response: ImprovedSucceeded @PTAiGEL Complications: None, Response: UnchangedSucceeded @PTAOxygen FlowRate: 15 Device: Bag Valve Mask (BVM) Response: ImprovedSucceeded @20:04 iGEL Complications: Other (Not Listed), Response: UnchangedSucceeded @20:02 Epinephrine 1:10 - 1 Milligrams (mg) - Intravenous (IV) Response: Unchanged @20:15 Consult/Order Requested Response: Unchanged @20:12 Epinephrine 1:10 - 1 Milligrams (mg) - Intravenous (IV) Response: Unchanged @19:58 Epinephrine 1:10 - 1 Milligrams (mg) - Intravenous (IV) Response: Unchanged @20:07 Epinephrine 1:10 - 1 Milligrams (mg) - Intravenous (IV) Response: Unchanged @19:54 Epinephrine 1:10 - 1 Milligrams (mg) - Intravenous (IV) Response: Unchanged @20:29 Norepinephrine - 10 Micrograms per Minute (mcg/min) - Intravenous (IV) Response: Improved @20:17 Response: Unchanged @19:51 ALS Assessment Response: UnchangedSucceeded @PTAIV Therapy - Saline Lock 500cc () Site: Other Central (PICC, Portacath, Not Listed) Response: UnchangedSucceeded @19:53 IV Therapy - Saline Lock 0cc (20 ga) Site: Antecubital-Right Response: [place] [address] EMS Patient Care Report Name: KATHERINE ZUNIGA Room #: DEP Jaden#: [id number] Admission: 03/25/21 Attend Phys: Discharge: 03/25/21 Date of : 35 Report #: [id number] UnchangedFailed Timeline PERFORMANCE IMPROVEMENT COORDINATOR,Response: UnchangedSucceeded, PERFORMANCE IMPROVEMENT COORDINATOR,iGEL Complications: None,,Response: UnchangedSucceeded, PERFORMANCE IMPROVEMENT COORDINATOR,Oxygen FlowRate: 15 Device: Bag Valve Mask (BVM) Response: ImprovedSucceeded, PERFORMANCE IMPROVEMENT COORDINATOR,IV Therapy - Saline Lock 500cc Site: Other Central (PICC, Portacath, Not Listed),Response: UnchangedSucceeded, PERFORMANCE IMPROVEMENT COORDINATOR,BP: / M,PULSE: 0,RR: 0 R,SPO2: Ox,ETCO2: ,BG: ,PAIN: ,GCS: 3, 19:40,Call Received 19:40,Psap Call 19:41,Dispatched 19:42,En Route 19:47,On Scene 19:50,At Patient 19:51,ALS Assessment,Response: UnchangedSucceeded, 19:52,BP: / M,PULSE: 0,RR: 0 R,SPO2: Ox,ETCO2: ,B,PAIN: ,GCS: 3, 19:53,IV Therapy - Saline Lock 0cc 20 ga Site: Antecubital-Right,Response: UnchangedFailed, 19:54,Epinephrine 1:10 - 1 Milligrams (mg) - Intravenous (IV),Response: Unchanged 19:54,BP: / M,PULSE: ,RR: R,SPO2: Ox,ETCO2: ,BG: ,PAIN: ,GCS: , 19:55,BP: / M,PULSE: ,RR: R,SPO2: Ox,ETCO2: ,BG: ,PAIN: ,GCS: , 19:57,BP: / M,PULSE: ,RR: R,SPO2: Ox,ETCO2: 18 ,BG: ,PAIN: ,GCS: , 19:58,Epinephrine 1:10 - 1 Milligrams (mg) - Intravenous (IV),Response: Unchanged 19:58,BP: / M,PULSE: 0,RR: R,SPO2: Ox,ETCO2: 23 ,BG: ,PAIN: ,GCS: , 19:59,BP: / M,PULSE: ,RR: R,SPO2: Ox,ETCO2: 4 ,BG: ,PAIN: ,GCS: , 20:01,BP: / M,PULSE: ,RR: 10 R,SPO2: Ox,ETCO2: 14 ,BG: ,PAIN: ,GCS: , 20:02,Epinephrine 1:10 - 1 Milligrams (mg) - Intravenous (IV),Response: Unchanged 20:03,BP: / M,PULSE: ,RR: 10 R,SPO2: Ox,ETCO2: 0 ,BG: ,PAIN: ,GCS: , 20:04,iGEL Complications: Other (Not Listed),,Response: UnchangedSucceeded, 20:05,BP: / M,PULSE: ,RR: 10 R,SPO2: Ox,ETCO2: 30 ,BG: ,PAIN: ,GCS: , 20:07,Epinephrine 1:10 - 1 Milligrams (mg) - Intravenous (IV),Response: Unchanged 20:11,BP: / M,PULSE: ,RR: 13 R,SPO2: Ox,ETCO2: 29 ,BG: ,PAIN: ,GCS: , 20:12,Epinephrine 1:10 - 1 Milligrams (mg) - Intravenous (IV),Response: Unchanged 20:12,BP: / M,PULSE: 116,RR: 10 R,SPO2: Ox,ETCO2: 28 ,BG: ,PAIN: ,GCS: , 20:12,BP: / M,PULSE: 116,RR: R,SPO2: Ox,ETCO2: 14 ,BG: ,PAIN: ,GCS: , 20:15,Consult/Order Requested,Response: Unchanged 20:15,BP: / M,PULSE: 120,RR: 10 R,SPO2: Ox,ETCO2: 44 ,BG: ,PAIN: ,GCS: , 20:16,BP: / M,PULSE: 73,RR: R,SPO2: Ox,ETCO2: 26 ,BG: ,PAIN: ,GCS: , [address] [place] [id number] EMS Patient Care Report Name: NADIAKATHERINE Room #: DEP Jaden#: [id number] Admission: 03/25/21 Attend Phys: Discharge: 03/25/21 Date of : 35 Report #: [id number] 20:17,Response: Unchanged 20:18,Orotracheal Intubation Complications: None,,Response: ImprovedSucceeded, 20:20,BP: 96/53 M,PULSE: 100,RR: 10 R,SPO2: Ox,ETCO2: 84 ,BG: ,PAIN: ,GCS: 3, 20:24,BP: 67/40 M,PULSE: 106,RR: 10 R,SPO2: Ox,ETCO2: 62 ,BG: ,PAIN: ,GCS: , 20:27,Depart Scene 20:27,BP: / M,PULSE: 73,RR: R,SPO2: Ox,ETCO2: 65 ,BG: ,PAIN: ,GCS: , 20:29,Norepinephrine - 10 Micrograms per Minute (mcg/min) - Intravenous (IV),Response: Improved 20:33,BP: 49/28 M,PULSE: 88,RR: R,SPO2: Ox,ETCO2: 57 ,BG: ,PAIN: ,GCS: , 20:33,12-Lead ECG,Response: UnchangedSucceeded, 20:33,BP: / M,PULSE: 99,RR: R,SPO2: Ox,ETCO2: 56 ,BG: ,PAIN: ,GCS: , 20:35,BP: / M,PULSE: 98,RR: 10 R,SPO2: 72 Ox,ETCO2: 63 ,BG: ,PAIN: ,GCS: , 20:36,BP: / M,PULSE: 96,RR: 10 R,SPO2: 66 Ox,ETCO2: 56 ,BG: ,PAIN: ,GCS: , 20:36,BP: 135/100 M,PULSE: ,RR: R,SPO2: 68 Ox,ETCO2: ,BG: ,PAIN: ,GCS: 3, 20:38,BP: 109/90 M,PULSE: ,RR: 9 R,SPO2: 63 Ox,ETCO2: 59 ,BG: ,PAIN: ,GCS: , 20:38,At Destination 20:43,BP: / M,PULSE: ,RR: R,SPO2: 66 Ox,ETCO2: 65 ,BG: ,PAIN: ,GCS: , 20:44,BP: / M,PULSE: 116,RR: 10 R,SPO2: 61 Ox,ETCO2: 32 ,BG: ,PAIN: ,GCS: , 20:45,BP: / M,PULSE: 29,RR: 12 R,SPO2: 68 Ox,ETCO2: 32 ,BG: ,PAIN: ,GCS: , 20:48,BP: / M,PULSE: 37,RR: 10 R,SPO2: 75 Ox,ETCO2: 44 ,BG: ,PAIN: ,GCS: , 20:54,Call Closed Disclaimer v1.1 Copyright 2020 [employer] This EMS Care Summary contains data elements from the applicable legal record (which may be displayed differently). It is designed to provide pertinent information for the following purposes: continuity of care, clinical quality, and state data reporting. The complete legal record is available to ED staff and administrators of the receiving hospital in [employer] Patient Tracker. All data is provided "as is."
--- NOTE | ~2021-03-25 | EMS ---
[address] [address] EMS Patient Care Report Name: KATHERINE ZUNIGA Room #: DEP TENA Stanley#: [id number] Admission: 03/25/21 Attend Phys: Discharge: 03/25/21 Date of : 35 Report #: [id number] THIS REPORT FOR: //name// Report Transmitted: 03/26/2021 06:28 EMS Care Summary [facility] MED-ACT Incident [id number] @ 03/25/2021 19:41 Incident Location [address] [address] Patient KATHERINE ZUNIGA Male, 85 Years 1935 Patient Address [address] [place] [address] Patient History Other,Dementia,Hypertension (HTN),Gastro-Esophageal Reflux Disease (GERD),Amputee,Urinary Tract Infection (UTI),Depression,Anxiety,Sepsis,Pressure Ulcer,Malnutrition,Anorexia Nervosa,Type 2 Diabetes,Enlarged prostate,Insomnia, Patient Allergies No known allergies, Patient Medications Atrovent, Tamsulosin, Oxycodone, Insulin, Lovenox, Albuterol, Pantoprazole, ASA, Reglan, Vancomycin, Cyclobenzaprine, Chief Complaint cardiac arrest Disposition Transported Lights/[place] Dispatch Reason Cardiac Arrest/ Transported To [facility] Narrative [address] [address] EMS Patient Care Report Name: KATHERINE ZUNIGA Room #: DEP ER Jaden#: [id number] Admission: 03/25/21 Attend Phys: Discharge: 03/25/21 Date of : 35 Report #: [id number] Dispatched to a rehab facility for an 85 year old male reported to be in cardiac arrest. EMS arrives to [facility] the pt supine on the floor, with an iGel in place and CPR being performed by [facility] FD crew. FD crew reports that the pt was unresponsive, pulseless, and apneic upon their arrival, and that their initial rhythm check showed asystole. Facility staff reports that they last checked on the pt about 90 minutes prior and say that he has been declining recently. They report that he is there to receive IV vancomycin for osteomyelitis. Staff reports that they found the pt in cardiac arrest just prior to calling 911. Pt is noted to have a DNR plastic bracelet on his right arm, however staff insist that he he came to them wearing that but has no out of hospital DNR/is a full code. Pt reportedly has no family to contact for clarification so responders continued with resuscitation efforts. Pt remains in asystole and PEA for approximately 25 minutes. Procedures and Vs as noted. Pt initially noted to have a waveform and numeric reading etCO2 with iGel ventilation however it was unable to be maintained despite numerous etCO2 filter line sets being utilized and two different iGels placed. Pt maintain a visible waveform and numeric reading when BVM and mask ventilations are done instead. EMS contacts medical control for orders to DC resuscitation after 25 minutes due to the lack of a secured airway. Dr. Calderón requests that an ET tube be placed and 5-10 more minutes of effort be attempted. Shortly thereafter, prior to intubation, pt is noted to have carotid and femoral pulses (ROSC). Pt did not regain spontaneous respiratory effort. ET tube placed and secured, and Vs obtained prior to lifting the pt to the cot and being secured for emergent transport to the nearest ER. Pt remained unresponsive with non-reactive pupils. 12 lead shows an inferior STEMI while en route. Norepinephrine drip initiated for profound hypotension until pts BP increased to above 100 systolic. [facility] given notification of impending arrival of a post cardiac arrest pt. Upon arrival at the ER, pt is lifted from the cot to the ER bed #1. Care transferred to waiting RN and MD. Initial Vitals @20:33P: 88,BP: 49/28,EtCO2: 57, @20:33P: 99,EtCO2: 56,IA Suspected: true @19:77LbXG4: 18, @20:16P: 73,EtCO2: 26, @20:12P: 116,EtCO2: 14, @20:27P: 73,EtCO2: 65, @19:54 @19:03UgDN0: 4, @19:55 @20:91SjSJ6: 65,SpO2: 66, @19:58P: 0,EtCO2: 23, @20:12P: 116,R: 10,EtCO2: 28, @20:45P: 29,R: 12,EtCO2: 32,SpO2: 68, @20:05R: 10,EtCO2: 30, [facility] [address] [place] [address] EMS Patient Care Report Name: KATHERINE ZUNIGA Room #: DEP Jaden#: [id number] Admission: 03/25/21 Attend Phys: Discharge: 03/25/21 Date of : [birth year] Report #: [id number] @20:44P: 116,R: 10,EtCO2: 32,SpO2: 61, @20:11R: 13,EtCO2: 29, @20:38R: 9,BP: 109/90,EtCO2: 59,SpO2: 63, @20:35P: 98,R: 10,EtCO2: 63,SpO2: 72, @20:01R: 10,EtCO2: 14, @20:48P: 37,R: 10,EtCO2: 44,SpO2: 75, @20:36P: 96,R: 10,EtCO2: 56,SpO2: 66, @20:15P: 120,R: 10,EtCO2: 44, @20:24P: 106,R: 10,BP: 67/40,EtCO2: 62, @20:03R: 10,EtCO2: 0, @20:36BP: 135/100,GCS: 3,SpO2: 68, @19:52P: 0,R: 0,GCS: 3,Glucose: 130,IA Suspected: false @PTAP: 0,R: 0,GCS: 3,IA Suspected: false @20:20P: 100,R: 10,BP: 96/53,GCS: 3,EtCO2: 84,Revised Trauma: 8, Impression Cardiac arrest Procedures @FILTER PULP WASHER Response: UnchangedSucceeded @20:33 12-Lead ECG Response: UnchangedSucceeded @20:18 Orotracheal Intubation Complications: None, Response: ImprovedSucceeded @PTAiGEL Complications: None, Response: UnchangedSucceeded @PTAOxygen FlowRate: 15 Device: Bag Valve Mask (BVM) Response: ImprovedSucceeded @20:04 iGEL Complications: Other (Not Listed), Response: UnchangedSucceeded @20:02 Epinephrine 1:10 - 1 Milligrams (mg) - Intravenous (IV) Response: Unchanged @20:15 Consult/Order Requested Response: Unchanged @20:12 Epinephrine 1:10 - 1 Milligrams (mg) - Intravenous (IV) Response: Unchanged @19:58 Epinephrine 1:10 - 1 Milligrams (mg) - Intravenous (IV) Response: Unchanged @20:07 Epinephrine 1:10 - 1 Milligrams (mg) - Intravenous (IV) Response: Unchanged @19:54 Epinephrine 1:10 - 1 Milligrams (mg) - Intravenous (IV) Response: Unchanged @20:29 Norepinephrine - 10 Micrograms per Minute (mcg/min) - Intravenous (IV) Response: Improved @20:17 Response: Unchanged @19:51 ALS Assessment Response: UnchangedSucceeded @PTAIV Therapy - Saline Lock 500cc () Site: Other Central (PICC, Portacath, Not Listed) Response: UnchangedSucceeded @19:53 IV Therapy - Saline Lock 0cc (20 ga) Site: Antecubital-Right Response: [place] [address] EMS Patient Care Report Name: KATHERINE ZUNIGA Room #: DEP Jaden#: [id number] Admission: 03/25/21 Attend Phys: Discharge: 03/25/21 Date of : 35 Report #: [id number] UnchangedFailed Timeline FILTER PULP WASHER,Response: UnchangedSucceeded, FILTER PULP WASHER,iGEL Complications: None,,Response: UnchangedSucceeded, FILTER PULP WASHER,Oxygen FlowRate: 15 Device: Bag Valve Mask (BVM) Response: ImprovedSucceeded, FILTER PULP WASHER,IV Therapy - Saline Lock 500cc Site: Other Central (PICC, Portacath, Not Listed),Response: UnchangedSucceeded, FILTER PULP WASHER,BP: / M,PULSE: 0,RR: 0 R,SPO2: Ox,ETCO2: ,BG: ,PAIN: ,GCS: 3, 19:40,Call Received 19:40,Psap Call 19:41,Dispatched 19:42,En Route 19:47,On Scene 19:50,At Patient 19:51,ALS Assessment,Response: UnchangedSucceeded, 19:52,BP: / M,PULSE: 0,RR: 0 R,SPO2: Ox,ETCO2: ,B,PAIN: ,GCS: 3, 19:53,IV Therapy - Saline Lock 0cc 20 ga Site: Antecubital-Right,Response: UnchangedFailed, 19:54,Epinephrine 1:10 - 1 Milligrams (mg) - Intravenous (IV),Response: Unchanged 19:54,BP: / M,PULSE: ,RR: R,SPO2: Ox,ETCO2: ,BG: ,PAIN: ,GCS: , 19:55,BP: / M,PULSE: ,RR: R,SPO2: Ox,ETCO2: ,BG: ,PAIN: ,GCS: , 19:57,BP: / M,PULSE: ,RR: R,SPO2: Ox,ETCO2: 18 ,BG: ,PAIN: ,GCS: , 19:58,Epinephrine 1:10 - 1 Milligrams (mg) - Intravenous (IV),Response: Unchanged 19:58,BP: / M,PULSE: 0,RR: R,SPO2: Ox,ETCO2: 23 ,BG: ,PAIN: ,GCS: , 19:59,BP: / M,PULSE: ,RR: R,SPO2: Ox,ETCO2: 4 ,BG: ,PAIN: ,GCS: , 20:01,BP: / M,PULSE: ,RR: 10 R,SPO2: Ox,ETCO2: 14 ,BG: ,PAIN: ,GCS: , 20:02,Epinephrine 1:10 - 1 Milligrams (mg) - Intravenous (IV),Response: Unchanged 20:03,BP: / M,PULSE: ,RR: 10 R,SPO2: Ox,ETCO2: 0 ,BG: ,PAIN: ,GCS: , 20:04,iGEL Complications: Other (Not Listed),,Response: UnchangedSucceeded, 20:05,BP: / M,PULSE: ,RR: 10 R,SPO2: Ox,ETCO2: 30 ,BG: ,PAIN: ,GCS: , 20:07,Epinephrine 1:10 - 1 Milligrams (mg) - Intravenous (IV),Response: Unchanged 20:11,BP: / M,PULSE: ,RR: 13 R,SPO2: Ox,ETCO2: 29 ,BG: ,PAIN: ,GCS: , 20:12,Epinephrine 1:10 - 1 Milligrams (mg) - Intravenous (IV),Response: Unchanged 20:12,BP: / M,PULSE: 116,RR: 10 R,SPO2: Ox,ETCO2: 28 ,BG: ,PAIN: ,GCS: , 20:12,BP: / M,PULSE: 116,RR: R,SPO2: Ox,ETCO2: 14 ,BG: ,PAIN: ,GCS: , 20:15,Consult/Order Requested,Response: Unchanged 20:15,BP: / M,PULSE: 120,RR: 10 R,SPO2: Ox,ETCO2: 44 ,BG: ,PAIN: ,GCS: , 20:16,BP: / M,PULSE: 73,RR: R,SPO2: Ox,ETCO2: 26 ,BG: ,PAIN: ,GCS: , [address] [place] [address] EMS Patient Care Report Name: NADIAKATHERINE Room #: DEP Jaden#: [id number] Admission: 03/25/21 Attend Phys: Discharge: 03/25/21 Date of : 35 Report #: [id number] 20:17,Response: Unchanged 20:18,Orotracheal Intubation Complications: None,,Response: ImprovedSucceeded, 20:20,BP: 96/53 M,PULSE: 100,RR: 10 R,SPO2: Ox,ETCO2: 84 ,BG: ,PAIN: ,GCS: 3, 20:24,BP: 67/40 M,PULSE: 106,RR: 10 R,SPO2: Ox,ETCO2: 62 ,BG: ,PAIN: ,GCS: , 20:27,Depart Scene 20:27,BP: / M,PULSE: 73,RR: R,SPO2: Ox,ETCO2: 65 ,BG: ,PAIN: ,GCS: , 20:29,Norepinephrine - 10 Micrograms per Minute (mcg/min) - Intravenous (IV),Response: Improved 20:33,BP: 49/28 M,PULSE: 88,RR: R,SPO2: Ox,ETCO2: 57 ,BG: ,PAIN: ,GCS: , 20:33,12-Lead ECG,Response: UnchangedSucceeded, 20:33,BP: / M,PULSE: 99,RR: R,SPO2: Ox,ETCO2: 56 ,BG: ,PAIN: ,GCS: , 20:35,BP: / M,PULSE: 98,RR: 10 R,SPO2: 72 Ox,ETCO2: 63 ,BG: ,PAIN: ,GCS: , 20:36,BP: / M,PULSE: 96,RR: 10 R,SPO2: 66 Ox,ETCO2: 56 ,BG: ,PAIN: ,GCS: , 20:36,BP: 135/100 M,PULSE: ,RR: R,SPO2: 68 Ox,ETCO2: ,BG: ,PAIN: ,GCS: 3, 20:38,BP: 109/90 M,PULSE: ,RR: 9 R,SPO2: 63 Ox,ETCO2: 59 ,BG: ,PAIN: ,GCS: , 20:38,At Destination 20:43,BP: / M,PULSE: ,RR: R,SPO2: 66 Ox,ETCO2: 65 ,BG: ,PAIN: ,GCS: , 20:44,BP: / M,PULSE: 116,RR: 10 R,SPO2: 61 Ox,ETCO2: 32 ,BG: ,PAIN: ,GCS: , 20:45,BP: / M,PULSE: 29,RR: 12 R,SPO2: 68 Ox,ETCO2: 32 ,BG: ,PAIN: ,GCS: , 20:48,BP: / M,PULSE: 37,RR: 10 R,SPO2: 75 Ox,ETCO2: 44 ,BG: ,PAIN: ,GCS: , 20:54,Call Closed Disclaimer v1.1 Copyright 2020 [employer] This EMS Care Summary contains data elements from the applicable legal record (which may be displayed differently). It is designed to provide pertinent information for the following purposes: continuity of care, clinical quality, and state data reporting. The complete legal record is available to ED staff and administrators of the receiving hospital in [employer]'s Patient Tracker. All data is provided "as is."
[~2021-03-25 20:41] MED LIST changes: +CEFDINIR300 MG PO; +HUMALOG100 UNIT/1 SUBQ; +NORMAL SALINE FL5 ML IV; +REGLAN10 MG PO; +VANCO 500500 MG/100 IV; +[UNRECOGNIZED DRUG - OTHER] IRRIG
[2021-03-25 21:24] VITALS: BP 160/122
[2021-03-25 21:32] LABS: ABSOLUTE NEUTROPHILS 13.8 thou/uL (1.4-8.2); BASOPHILS 0.7 % (0.0-2.0); EOSINOPHILS 0.4 % (0.0-3.0); HEMATOCRIT 33.4 % (42.0-52.0); HEMOGLOBIN 10.3 gm/dL (14.0-18.0); LYMPHOCYTES 6.6 % (24.0-44.0); MCHC 30.7 g/dL (28.0-37.0); MCV 97.7 fL (80.0-100.0); MONOCYTES 1.9 % (1.0-8.0); PLATELET COUNT 194 thou/uL (150-400); POLYS 90.4 % (36.0-66.0); RBC 3.42 mil/uL (4.50-6.00); RDW 17.5 % (10.5-14.5); WBC 15.3 thou/uL (4.0-11.0)
[2021-03-25 21:38] LABS: CALCIUM 7.5 mg/dL (8.5-10.1); CREATININE 1.5 mg/dL (0.7-1.3); POTASSIUM 4.2 mmol/L (3.5-5.1)
[2021-03-25 21:44] LABS: ALBUMIN 1.2 g/dL (3.4-5.0); TOTAL BILIRUBIN 0.4 mg/dL (0.2-1.0); TOTAL PROTEIN 4.5 g/dL (6.4-8.2)
--- NOTE | 2021-03-26 14:01 | EKG ---
[place] [address] [facility] 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: MPARJames : 1935 Requested By: Rad Humphries Order Number: [id number] MD: Espinoza Lindsay Measurements Intervals [place] Rate: 98 P: LA: QRS: 102 QRSD: 54 T: 45 QT: 464 QTc: 593 Interpretive Statements NSR Low voltage, extremity and precordial leads Compared to ECG 03/12/2021 13:12:59 ST (T wave) deviation now present Electronically Signed On 03-26-2021 14:00:57 RN TESTING by Espinoza Lindsay [email or web address] <ELECTRONICALLY SIGNED> By: Espinoza Lindsay MD, [facility] 03/26/211399 2057 56 Espinoza Lindsay MD, FACC /EPI
== END 2021-03-25 21:49 ==
LOC: ER 20:41
PROVIDERS: Emergency Medicine
DX: I46.9 Cardiac arrest, cause unspecified (principal); E11.9 Type 2 diabetes mellitus without complications; F02.80 Dementia in other diseases classified elsewhere, unspecified severity, without behavioral disturbance, psychotic disturbance, mood disturbance, and anxiety; F41.9 Anxiety disorder, unspecified; I73.9 Peripheral vascular disease, unspecified; F17.210 Nicotine dependence, cigarettes, uncomplicated; F32.9 Major depressive disorder, single episode, unspecified; I10 Essential (primary) hypertension; K31.84 Gastroparesis; Z79.4 Long term (current) use of insulin; Z79.82 Long term (current) use of aspirin; Z79.891 Long term (current) use of opiate analgesic; Z79.1 Long term (current) use of non-steroidal anti-inflammatories (NSAID); Z79.899 Other long term (current) drug therapy